=== PATIENT | male | born 1995 | race Caucasian/White ===

== ENCOUNTER 2023-02-09 12:52 | Emergency (ER) | payer OTHER, SELFPAY ==
[2023-02-09 14:51] LABS: SARS-CoV-2 NAA Rapid Test Not Detected (NotDetected)
== END 2023-02-09 14:29 | disposition home or self-care (01) ==
LOC: CSHERS 12:52
DX: R06.02 Shortness of breath (principal); R05.9 Cough, unspecified; Z20.822 Contact with and (suspected) exposure to COVID-19
CPT/HCPCS: 71046

== ENCOUNTER 2023-10-31 13:57 | Outpatient (CLI) | payer OTHER | END 2023-10-31 13:58 | disposition home or self-care (01) | LOC: CSHRAD 13:57 | PROVIDERS: ATTEND Nurse Practitioner | DX: R76.11 Nonspecific reaction to tuberculin skin test without active tuberculosis (principal) | CPT/HCPCS: 71046 ==